=== PATIENT | male | born 1940 | race Caucasian/White ===

== ENCOUNTER 2016-08-03 08:28 | Outpatient (CLI) | payer OTHER ==
[~2016-08-03 08:28] MED LIST: HYCET1 ML PO
--- NOTE | 2016-08-03 10:10 | DIAGNOSTIC IMAGING REPORT ---
PROCEDURE: US KIDNEY/RENAL COMPLETE INDICATION: HEMATURIA TECHNIQUE: Transabdominal scans of the kidneys with calculation of resistive indices. Prevoid and postvoid bladder volumes were obtained. COMPARISON: Renal ultrasound 10/28/2015. FINDINGS: RIGHT: Kidney measures 11.7 x 5.1 x 5.6 cm. Cortex measures 1 cm. No calculi or hydronephrosis. Resistive indices measure 0.57 or less. LEFT: Kidney measures 10.9 x 5.7 x 6 cm. Cortex measures 1 cm. No calculi or hydronephrosis. Stable lower pole subcentimeter exophytic cyst. Resistive indices measure 0.65 or less. BLADDER: Bilateral ureteral jets visualized. Prevoid bladder volume 188 cm. Postvoid volume 103 ml. Enlarged prostate measures 6.4 x 5.2 x 6.4 cm. IMPRESSION: 1. Mild bilateral renal cortical thinning 2. Stable subcentimeter left renal lower pole cyst 3. Enlarged prostate with 103 ml postvoid residual bladder volume
== END 2016-08-03 23:00 ==
LOC: US SRH 08:28
DX: N28.9 Disorder of kidney and ureter, unspecified (principal); N40.0 Benign prostatic hyperplasia without lower urinary tract symptoms